=== PATIENT | male | born 1990 | race Two or more races ===

== ENCOUNTER 2017-11-13 04:07 | Emergency (ER) | payer SELFPAY ==
[~2017-11-13] VITALS: Ht 172.7 cm; Wt 86.2 kg
[2017-11-13 04:19] VITALS: BP 150/84
== END 2017-11-13 04:31 | disposition left against medical advice (07) ==
LOC: ER 04:07
DX: Z02.89 Encounter for other administrative examinations (principal); Z53.21 Procedure and treatment not carried out due to patient leaving prior to being seen by health care provider